=== PATIENT | female | born 1965 ===

== ENCOUNTER 2016-07-21 13:17 | Emergency (ER) | payer OTHER ==
[2016-07-21 13:48] VITALS: BP 118/60; PULSE 73; RESP 16; TEMP 98.3; O2SAT 100
--- NOTE | 2016-07-21 14:54 | ED PDOC ---
HPI: Back Time Seen by Provider: 07/21/16 14:26 Chief Complaint (Nursing): Back Pain Chief Complaint (Provider): Back Pain History Per: Patient History/Exam Limitations: no limitations Onset/Duration Of Symptoms: Days (20x) Current Symptoms Are (Timing): Still Present Quality Of Discomfort: "Pain" Severity: Moderate Previous Symptoms: Neck Pain Associated Symptoms: None Additional History Per: Patient Additional Complaint(s): 51 year old female with a pertinent medical history of osteoporosis and left sided neck pain presents to the ED with complaints of lower back pain that started 20x days ago. She denies having any trauma or injury to the area. She reports that it started with the left side of her neck and her left arm, and then radiated down to her lower back, and that pain radiates to her lower abdominal area and left leg. She spoke with her PMD today to make an appointment , but could not schedule it until 10x days from today, which is what prompted her visit to the ED today. She reports trying multiple medications with no relief (alieve, tylenol, ibuprofen, and motrin). She also reports having the chills last night, and not being able to sleep because of the pain, but she denies having any other symptoms including nausea, vomiting, diarrhea, numbness , and tingling. PMD: Juan Carlos Graves MD Past Medical History Reviewed: Historical Data, Nursing Documentation, Vital Signs Vital Signs: Last Vital Signs Temp 98.3 F 07/21/16 13:44 Pulse 73 07/21/16 13:44 Resp 16 07/21/16 13:44 BP 118/60 07/21/16 13:44 Pulse Ox 100 07/21/16 13:44 - Medical History PMH: Osteoporosis - Surgical History Surgical History: No Surg Hx - Family History Family History: States: No Known Family Hx - Social History Alcohol: None Drugs: Denies - Home Medications Home Medications: Ambulatory Orders Medication Instructions Recorded Ibuprofen 1 tab PO PRN PRN 07/25/14 Cyclobenzaprine [Flexeril] 5 mg PO Q8 PRN #15 tab 07/21/16 Naproxen [Naprosyn] 1 tab PO BID PRN #60 tab 07/21/16 traMADol [Ultram] 50 mg PO TID PRN 4 Days 07/21/16 - Allergies Allergies/Adverse Reactions: Allergies Allergy/AdvReac Type Severity Reaction Status Date / Time No Known Allergies Allergy Verified 07/21/16 13:44 Review of Systems Constitutional: Positive for: Chills Gastrointestinal: Positive for: Abdominal Pain (lower). Negative for: Nausea, Vomiting Musculoskeletal: Positive for: Neck Pain (left side), Shoulder Pain (left), Back Pain (lower), Leg Pain (left leg) Neurological: Negative for: Weakness, Numbness Physical Exam - Reviewed Nursing Documentation Reviewed: Yes Vital Signs Reviewed: Yes - Physical Exam Appears: Positive for: Well, Non-toxic, In Acute Distress (moderate painful distress) Head Exam: Positive for: ATRAUMATIC, NORMOCEPHALIC Skin: Positive for: Normal Color, Warm, Dry Pulses-Dorsalis Pedis (L): 2+ (strong DP pulses) Pulses-Dorsalis Pedis (R): 2+ Gastrointestinal/Abdominal: Positive for: Soft, Tenderness (suprapubic tenderness to palpation). Negative for: Mass, Distended, Guarding, Rebound, Other (negative mcburneys point tenderness) Back: Positive for: Vertebral Tenderness (tenderness to palpation in lumbar and paraspinal areas), Muscle Spasm (palpable spasm in lumbar and paraspinal areas) Extremity: Positive for: Capillary Refill (<2 second capillary refill), Other ( positive left straight leg test) Neurologic/Psych: Positive for: Alert, Oriented (3x), Other (5/5 strength in bilateral lower extremities. light touch intact in bilateral lower extremities. No saddle anesthesis of bilateral lower extremities) - ECG O2 Sat by Pulse Oximetry: 100 (RA) Pulse Ox Interpretation: Normal - Radiology X-Ray: Viewed By Me, Read By Radiologist (XRay lumbar spine) Medical Decision Making Medical Decision Makin:26 Initial impression: 51 year old female with back pain. Differential diagnoses include but are not limited to lumbar strain, herniated disc, sciatica, and occult fracture. Initial plan: * XRay LS spine AP/LAT * flexeril 10mg PO * toradol 30mg IM * ultram 50mg PO * udip * reevaluation 15:28 XRay Lumbar Spine read and reviewed by radiologist. FINDINGS: BONES: Alignment appears satisfactory. No listhesis. No acute displaced fracture identified. Mild degenerative changes including tiny anterior osteophyte formation. DISC SPACES: Unremarkable. OTHER FINDINGS: None. IMPRESSION: No acute displaced fracture or subluxation identified. 16:05 Upon reevaluation, patient is feeling much better and is moving better. Her XRay findings are discussed with her. She will be discharged home and will follow up with her PMD as scheduled. She is advised to go to physical therapy or more evaluation through outpatient. Scribe Attestation: Documented by Abby Granados, acting as a scribe for Shaunna Turner MD. Provider Scribe Attestation: All medical record entries made by the Scribe were at my direction and personally dictated by me. I have reviewed the chart and agree that the record accurately reflects my personal performance of the history, physical exam, medical decision making, and the department course for this patient. I have also personally directed, reviewed, and agree with the discharge instructions and disposition. Disposition - Clinical Impression Clinical Impression: Low back pain Counseled Patient/Family Regarding: Studies Performed, Diagnosis, Need For Followup, Rx Given, Smoking Cessation - Disposition Referrals: Juan Carlos Bush MD [Family Provider] - (SEE YOUR DOCTOR SCHEDULED NEXT WEEK) Disposition: Routine/Home Disposition Time: 14:05 Condition: IMPROVED Prescriptions: Cyclobenzaprine [Flexeril] 5 mg PO Q8 PRN #15 tab PRN Reason: muscle spasm Naproxen [Naprosyn] 1 tab PO BID PRN #60 tab PRN Reason: Pain traMADol [Ultram] 50 mg PO TID PRN 4 Days PRN Reason: SEVERE PAIN ONLY Instructions: Acute Low Back Pain (ED) Forms: [facility] ED School/Work Excuse Print Language: FAROESE
--- NOTE | 2016-07-21 15:30 | RAD ---
PROCEDURE: Radiographs of the Lumbar Spine. HISTORY: lumbar pain COMPARISON: None available. FINDINGS: BONES: Alignment appears satisfactory. No listhesis. No acute displaced fracture identified. Mild degenerative changes including tiny anterior osteophyte formation. DISC SPACES: Unremarkable. OTHER FINDINGS: None. IMPRESSION: No acute displaced fracture or subluxation identified.
[2016-07-21 15:38] LABS: RBC URINE 2 /hpf (0-3); URINE BACTERIA FEW (<OCC); URINE BILIRUBIN NEGATIVE (NEGATIVE); URINE BLOOD NEGATIVE (NEGATIVE); URINE COLOR YELLOW (YELLOW); URINE GLUCOSE (UA) NEG (Normal); URINE KETONE NEGATIVE (NEGATIVE); URINE LEUKOCYTE ESTERASE NEG Leu/uL (Negative); URINE PROTEIN NEGATIVE (NEGATIVE); URINE UROBILINOGEN 0.2-1.0 mg/dL (0.2-1.0); WBC URINE 1 /hpf (0-5)
== END 2016-07-21 16:43 | disposition home or self-care (01) ==
LOC: H.ER 13:17
DX: M54.5 Low back pain (principal); M81.0 Age-related osteoporosis without current pathological fracture